=== PATIENT | female | born 1950 | race Caucasian/White ===

== ENCOUNTER → 2018-12-22 | Outpatient (CLI) | payer OTHER | LOC: BHFA 14:45 | PROVIDERS: ATTEND Internal Medicine Cardiovascular Disease | DX: I42.2 Other hypertrophic cardiomyopathy (principal); I10 Essential (primary) hypertension ==

== ENCOUNTER → 2019-04-25 | Outpatient (CLI) | payer OTHER | LOC: FIMAGING 13:19 ==